=== PATIENT | female | born 1985 | race Two or more races ===

== ENCOUNTER 2022-10-28 16:41 | Emergency (ER) | payer OTHER ==
[~2022-10-28] VITALS: Ht 165.1 cm; Wt 60.3 kg
== END 2022-10-28 23:27 | disposition home or self-care (01) ==
LOC: ER 16:41
DX: S09.90XA Unspecified injury of head, initial encounter (principal); S19.9XXA Unspecified injury of neck, initial encounter; W05.1XXA Fall from non-moving nonmotorized scooter, initial encounter; Y93.89 Activity, other specified; Y92.89 Other specified places as the place of occurrence of the external cause; Y99.9 Unspecified external cause status

== ENCOUNTER 2025-02-20 14:01 | Emergency (ER) | payer OTHER ==
[~2025-02-20] VITALS: Ht 162.6 cm; Wt 52.2 kg
[2025-02-20] MEDS ORDERED: CEFTRIAXONE SODIUM 1,000 MG VIAL ONE (16:37)
[2025-02-20] MEDS ORDERED: BACITRACIN-NEOMYCIN-POLYMYXIN 0.9 GM PACKET TOP ONE ×2 (16:37→16:45)
[2025-02-20] MEDS ORDERED: DIPHTH,PERTUSS(ACELL),TET VAC 0.5 ML SYRINGE IM ONE (16:37)
[2025-02-20] MEDS ORDERED: LIDOCAINE HCL 1% 10ML VIAL ONE (16:38)
[2025-02-20] MEDS ORDERED: CEFTRIAXONE SODIUM 1,000 MG VIAL IM ONE (16:45)
[2025-02-20] MEDS ORDERED: DIPHTH,PERTUSS(ACELL),TET VAC 0.5 ML VIAL IM ONE (16:45)
[2025-02-20] MEDS ORDERED: CEPHALEXIN500 MG PO (16:46)
== END 2025-02-20 16:57 | disposition home or self-care (01) ==
LOC: ER 14:13
DX: S61.451A Open bite of right hand, initial encounter (principal); W54.0XXA Bitten by dog, initial encounter; Y93.89 Activity, other specified; Y92.830 Public park as the place of occurrence of the external cause; Y99.8 Other external cause status
CPT/HCPCS: 90471; 90714; J1670